=== PATIENT | male | born 1950 | race African-American/Black ===

== ENCOUNTER 2024-06-20 17:23 | Inpatient (IN) | payer OTHER ==
[~2024-06-20] VITALS: Ht 195.6 cm; Wt 99.0 kg
[2024-06-20 19:32] LABS: CLARITY URINE CLOUDY (CLEAR); COLOR URINE DARK YELLOW (YELLOW); GLUCOSE URINE NEGATIVE (NEGATIVE); KETONES URINE TRACE (NEGATIVE); LEUKOCYTE ESTERASE URINE TRACE (NEGATIVE); NITRITE URINE NEGATIVE (NEGATIVE); OCCULT BLOOD URINE TRACE (NEGATIVE); PH URINE 5.5 (4.5-8.0); PROTEIN URINE 1+ (NEGATIVE); SPECIFIC GRAVITY URINE 1.024 (1.005-1.030)
[2024-06-20 19:44] LABS: WBC URINE 0-2 /hpf (0-2)
[2024-06-20 19:45] LABS: BACTERIA URINE TR; RBC URINE 0-2 /hpf (0-2); SQUAMOUS EPITHELIAL CELL URINE 1+ /lpf (RARE/1+)
[2024-06-20 19:46] LABS: HYALINE CASTS URINE 0-5 /lpf
[2024-06-20 20:37] LABS: DIFFERENTIAL COMMENT 1; HEMATOCRIT. 46.9 % (42.0-52.0); HEMOGLOBIN. 16.2 g/dL (14.0-18.0); MEAN CORPUSCULAR HEMOGLOBIN 34.3 pg (28.0-32.0); MEAN CORPUSCULAR HGB CONC 34.5 g/dL (31.0-37.0); MEAN CORPUSCULAR VOLUME 99.7 fL (80.0-94.0); MEAN PLATELET VOLUME 8.5 fl (7.4-10.4); PLATELET 154 x1000/uL (130-400); RED BLOOD CELL COUNT 4.71 mill/uL (4.7-6.1); RED CELL DISTRIBUTION WIDTH 14.6 % (11.6-14.6); WHITE BLOOD COUNT 9.6 x1000/uL (4.5-11.0)
[2024-06-20 20:44] LABS: CHLORIDE 103 mEq/L (98-107); POTASSIUM 3.8 mEq/L (3.5-5.1); SODIUM 135 mEq/L (136-145)
[2024-06-20 20:45] LABS: CALCIUM 9.4 mg/dL (8.7-10.4); CARBON DIOXIDE 24 mEq/L (21-32)
[2024-06-20 20:50] LABS: CREATININE 1.1 mg/dL (0.6-1.3); GLUCOSE 118 mg/dL (70-105); UREA NITROGEN BLOOD 11 mg/dL (9-23)
[2024-06-20 20:52] LABS: ALANINE AMINOTRANSFERASE 19 IU/L (10-49); ASPARTATE AMINOTRANSFERASE 32 IU/L (<34)
[2024-06-20 20:53] LABS: BILIRUBIN TOTAL 2.5 mg/dL (0.1-1.0); PROTEIN TOTAL 6.9 g/dL (6.0-8.3)
[2024-06-20 20:58] LABS: PLATELET ESTIMATE NORMAL
[2024-06-20] MEDS: KETOROLAC 30MG/ML VIAL IM ONE (21:12)
[2024-06-20] MEDS: ACETAMINOPHEN 325MG TABLET PO ONE (21:12)
[2024-06-20] MEDS: LIDOCAINE 5% PATCH TOP SCH (21:12)
[2024-06-21 07:23] VITALS: BP 142/112; RESP 16; TEMP 37.00296; O2SAT 99
[2024-06-21] MEDS ORDERED: ONDANSETRON HCL 4MG/2ML INJ IV PRN (11:00)
[2024-06-21] MEDS ORDERED: HYDRALAZINE 20MG/ML VIAL IV PRN ×2 (11:00→12:15)
[2024-06-21] MEDS ORDERED: DEXTROSE 50% WATER 50ML SYRINGE IV PRN (11:00)
[2024-06-21] MEDS ORDERED: IPRATROPIUM/ALBUTEROL 0.5-3(2.5)MG/3ML NEB HHN PRN (11:00)
[2024-06-21] MEDS: IOHEXOL-300 100 ML BOTTLE ONE (12:06)
[2024-06-21] MEDS ORDERED: HYDROCODONE/ACETAMINOPHEN 5/325MG TABLET PO PRN (12:15)
[2024-06-21] MEDS ORDERED: KETOROLAC 15MG/ML VIAL IV PRN (12:15)
[2024-06-21 13:38] LABS: HEMATOCRIT. 48.4 % (42.0-52.0); HEMOGLOBIN. 15.5 g/dL (14.0-18.0); MEAN CORPUSCULAR HEMOGLOBIN 32.8 pg (28.0-32.0); MEAN CORPUSCULAR VOLUME 102.6 fL (80.0-94.0); MEAN PLATELET VOLUME 8.7 fl (7.4-10.4); PLATELET 133 x1000/uL (130-400); RED BLOOD CELL COUNT 4.72 mill/uL (4.7-6.1); WHITE BLOOD COUNT 9.1 x1000/uL (4.5-11.0)
[2024-06-21 13:41] LABS: DIFFERENTIAL COMMENT 1
[2024-06-21 17:56] VITALS: BP 144/74; PULSE 67; RESP 18; TEMP 36.5848
[2024-06-21 20:00] VITALS: BP 165/167; PULSE 43; RESP 19; TEMP 36.44736; O2SAT 95
[2024-06-21] MEDS: BLOOD SUGAR DIAGNOSTIC STRIP TEST SCH (20:08)
[2024-06-21] MEDS: INSULIN LISPRO 100 UNITS/ML SUBCUT SCH (21:00)
[2024-06-21] MEDS: ATORVASTATIN CALCIUM 40MG TABLET PO SCH (21:23)
[2024-06-21 22:06] LABS: PLATELET ESTIMATE NORMAL
[2024-06-21] MEDS: SODIUM CHLORIDE 0.45% 1,000 ML IV SCH (23:33)
[2024-06-21] MEDS: HYDRALAZINE 10 MG in SODIUM CHLORIDE 0.9% 49.5 ML IV PRN (23:57)
[2024-06-22] VITALS: BP 121/83; PULSE 60; RESP 18; TEMP 36.05844; O2SAT 95
[2024-06-22 04:00] VITALS: BP 131/89; PULSE 66; RESP 18; TEMP 35.66952; O2SAT 100
[2024-06-22] MEDS: SODIUM CHLORIDE 0.9% 500 ML IV ONE (05:17)
[2024-06-22] MEDS: PANTOPRAZOLE 40MG DR TABLET PO SCH (07:20)
[2024-06-22 08:00] VITALS: BP 113/95; PULSE 75; RESP 20; TEMP 36.16956; O2SAT 97
[2024-06-22 12:00] VITALS: BP 118/73; PULSE 75; RESP 20; TEMP 36.00288; O2SAT 99
[2024-06-22] MEDS: DEXAMETHASONE 4MG/ML 1ML VIAL IV SCH (12:21)
[2024-06-22 16:00] VITALS: BP 131/85; PULSE 57; RESP 20; TEMP 36.16956; O2SAT 97
[2024-06-22 16:46] LABS: HEMATOCRIT. 48.5 % (42.0-52.0); HEMOGLOBIN. 16.3 g/dL (14.0-18.0); MEAN CORPUSCULAR HEMOGLOBIN 33.2 pg (28.0-32.0); MEAN CORPUSCULAR HGB CONC 33.6 g/dL (31.0-37.0); MEAN CORPUSCULAR VOLUME 98.8 fL (80.0-94.0); MEAN PLATELET VOLUME 9.3 fl (7.4-10.4); PLATELET 152 x1000/uL (130-400); RED BLOOD CELL COUNT 4.91 mill/uL (4.7-6.1); RED CELL DISTRIBUTION WIDTH 14.2 % (11.6-14.6); WHITE BLOOD COUNT 6.7 x1000/uL (4.5-11.0)
[2024-06-22 16:47] LABS: DIFFERENTIAL COMMENT 1
[2024-06-22 16:52] LABS: CALCIUM 9.4 mg/dL (8.7-10.4); CARBON DIOXIDE 25 mEq/L (21-32); CHLORIDE 101 mEq/L (98-107); POTASSIUM 3.9 mEq/L (3.5-5.1); SODIUM 134 mEq/L (136-145)
[2024-06-22 16:57] LABS: GLUCOSE 105 mg/dL (70-105)
[2024-06-22 16:58] LABS: LDL CHOLESTEROL 56 mg/dL (5-100); TRIGLYCERIDE 97 mg/dL (0-150); UREA NITROGEN BLOOD 20 mg/dL (9-23)
[2024-06-22 16:59] LABS: ALANINE AMINOTRANSFERASE 27 IU/L (10-49); ASPARTATE AMINOTRANSFERASE 46 IU/L (<34); BILIRUBIN DIRECT 0.8 mg/dL (<=3.0); CHOLESTEROL 140 mg/dL (<200); CREATINE KINASE 307 IU/L (46-171); HDL CHOLESTEROL 63 mg/dL (>55); LACTIC ACID 2.3 mmol/L (0.4-2.0)
[2024-06-22 17:00] LABS: BILIRUBIN TOTAL 2.5 mg/dL (0.1-1.0); PROTEIN TOTAL 6.8 g/dL (6.0-8.3)
[2024-06-22 17:02] LABS: T4 FREE 0.92 ng/dL (0.89-1.76); THYROID STIMULATING HORMONE 1.22 uIU/mL (0.55-4.78)
[2024-06-22 17:03] LABS: TROPONIN I HIGH SENSITIVITY 21 ng/L (3.0-53)
[2024-06-22 17:04] LABS: PHOSPHORUS 2.7 mg/dL (2.5-4.9)
[2024-06-22 17:17] LABS: ERYTHROCYTE SEDIMENTATION RATE 10 mm/hr (0-20)
[2024-06-22 19:54] LABS: PLATELET ESTIMATE NORMAL
[2024-06-22 19:55] LABS: ANISOCYTOSIS 1+
[2024-06-22 20:00] VITALS: BP 146/117; PULSE 63; RESP 18; TEMP 36.05844; O2SAT 96
[2024-06-22] MEDS: DEXT 5%/LACTATED RINGERS 1,000 ML IV SCH (22:10)
[2024-06-23] VITALS (50 sets, daily range): BP systolic 113–167; BP diastolic 89–132; PULSE 63–103; RESP 11–32; TEMP 36.05844–36.83628; O2SAT 96–100
[2024-06-23] MEDS ORDERED: LIDOCAINE HCL/EPINEPHRINE 1%-EPI 1:100,000 20ML VIAL ONE (05:13)
[2024-06-23] MEDS ORDERED: GENTAMICIN SULF 40MG/ML 2ML VIAL ONE (05:13)
[2024-06-23] MEDS ORDERED: THROMBIN (BOVINE) 5000 UNITS/VIAL TOP ONE (05:13)
[2024-06-23 06:32] LABS: CARBON DIOXIDE 25 mEq/L (21-32); CHLORIDE 102 mEq/L (98-107); POTASSIUM 4.5 mEq/L (3.5-5.1); SODIUM 136 mEq/L (136-145)
[2024-06-23 06:33] LABS: CALCIUM 9.4 mg/dL (8.7-10.4)
[2024-06-23 06:38] LABS: GLUCOSE 117 mg/dL (70-105); UREA NITROGEN BLOOD 26 mg/dL (9-23)
[2024-06-23 06:39] LABS: ALANINE AMINOTRANSFERASE 30 IU/L (10-49); ASPARTATE AMINOTRANSFERASE 43 IU/L (<34)
[2024-06-23 06:40] LABS: ALBUMIN 4.1 g/dL (3.2-4.8); BILIRUBIN DIRECT 0.8 mg/dL (<=3.0); BILIRUBIN TOTAL 2.5 mg/dL (0.1-1.0); PHOSPHORUS 3.1 mg/dL (2.5-4.9); PROTEIN TOTAL 6.6 g/dL (6.0-8.3)
[2024-06-23] MEDS ORDERED: LIDOCAINE HCL 2% 5ML SYRINGE IV ONE (08:00)
[2024-06-23] MEDS ORDERED: ROCURONIUM BROMIDE 10MG/ML VIAL 5ML IV ONE (08:00)
[2024-06-23] MEDS ORDERED: DEXAMETHASONE 4MG/ML 1ML VIAL ONE (08:00)
[2024-06-23] MEDS ORDERED: SUCCINYLCHOLINE CHLORIDE 200MG/10ML IV ONE (08:00)
[2024-06-23] MEDS ORDERED: PHENYLEPHRINE HCL 10MG/ML 1ML IV ONE (08:01)
[2024-06-23] MEDS ORDERED: PROPOFOL 200MG/20ML VIAL IV ONE (08:01)
[2024-06-23] MEDS: AMIODARONE 200MG TABLET PO SCH (09:00)
[2024-06-23] MEDS: DILTIAZEM HCL 125 MG in DEXT 5% WATER 100 ML IV PRN (09:55)
[2024-06-23 15:28] LABS: DIFFERENTIAL COMMENT 1; HEMATOCRIT. 44.4 % (42.0-52.0); HEMOGLOBIN. 15.1 g/dL (14.0-18.0); MEAN CORPUSCULAR HEMOGLOBIN 33.5 pg (28.0-32.0); MEAN CORPUSCULAR VOLUME 98.7 fL (80.0-94.0); MEAN PLATELET VOLUME 8.9 fl (7.4-10.4); PLATELET 187 x1000/uL (130-400); RED CELL DISTRIBUTION WIDTH 14.1 % (11.6-14.6); WHITE BLOOD COUNT 5.8 x1000/uL (4.5-11.0)
[2024-06-23 15:37] LABS: PROTHROMBIN TIME 11.3 sec (9.6-11.0)
[2024-06-23 19:10] LABS: NUCLEATED RED BLOOD CELLS 1 /100 WBC; PLATELET ESTIMATE NORMAL
[2024-06-23 19:11] LABS: ANISOCYTOSIS 1+
[2024-06-24] VITALS (62 sets, daily range): BP systolic 127–187; BP diastolic 65–129; PULSE 57–102; RESP 10–29; TEMP 36.83628–36.9474; O2SAT 93–100
[2024-06-24 06:00] LABS: CHLORIDE 105 mEq/L (98-107); POTASSIUM 4.4 mEq/L (3.5-5.1); SODIUM 137 mEq/L (136-145)
[2024-06-24 06:01] LABS: CALCIUM 8.9 mg/dL (8.7-10.4); CARBON DIOXIDE 26 mEq/L (21-32)
[2024-06-24 06:06] LABS: GLUCOSE 130 mg/dL (70-105); UREA NITROGEN BLOOD 21 mg/dL (9-23)
[2024-06-24 06:08] LABS: PHOSPHORUS 3.2 mg/dL (2.5-4.9)
[2024-06-24] MEDS: HYDRALAZINE 20MG/ML VIAL IV NR (06:22)
[2024-06-24] MEDS: DEXAMETHASONE 4MG/ML 1ML VIAL ONE (13:32)
[2024-06-24] MEDS: CARVEDILOL 3.125 MG TABLET PO SCH (13:39)
[2024-06-24] MEDS: AMIODARONE HCL 900 MG in DEXT 5% WATER 482 ML IV SCH (13:46)
[2024-06-24] MEDS: GADOTERATE MEGLUMINE 5 MMOL/10 ML VIAL IV ONE (15:53)
[2024-06-24] MEDS: LOSARTAN 50 MG TABLET PO SCH (20:24)
[2024-06-25] VITALS (55 sets, daily range): BP systolic 99–185; BP diastolic 68–169; PULSE 44–83; RESP 10–27; TEMP 36.50292–36.83628; O2SAT 96–100
[2024-06-25 05:52] LABS: CHLORIDE 104 mEq/L (98-107); POTASSIUM 3.9 mEq/L (3.5-5.1); SODIUM 138 mEq/L (136-145)
[2024-06-25 05:53] LABS: CALCIUM 8.8 mg/dL (8.7-10.4); CARBON DIOXIDE 28 mEq/L (21-32)
[2024-06-25 05:58] LABS: GLUCOSE 126 mg/dL (70-105); UREA NITROGEN BLOOD 25 mg/dL (9-23)
[2024-06-25 06:00] LABS: CREATINE KINASE 52 IU/L (46-171); PHOSPHORUS 3.5 mg/dL (2.5-4.9)
[2024-06-25 06:06] LABS: HEMATOCRIT. 44.7 % (42.0-52.0); HEMOGLOBIN. 14.6 g/dL (14.0-18.0); MEAN CORPUSCULAR HEMOGLOBIN 32.8 pg (28.0-32.0); MEAN CORPUSCULAR HGB CONC 32.8 g/dL (31.0-37.0); MEAN CORPUSCULAR VOLUME 100.1 fL (80.0-94.0); MEAN PLATELET VOLUME 9.1 fl (7.4-10.4); PLATELET 192 x1000/uL (130-400); RED BLOOD CELL COUNT 4.46 mill/uL (4.7-6.1); RED CELL DISTRIBUTION WIDTH 14.4 % (11.6-14.6); WHITE BLOOD COUNT 8.7 x1000/uL (4.5-11.0)
[2024-06-25 06:37] LABS: ADD RBC MORPHOLOGY YES; DIFFERENTIAL COMMENT 1
[2024-06-25] MEDS ORDERED: LIDOCAINE HCL 1% 10 MG/ML 10ML VIAL ONE (07:43)
[2024-06-25] MEDS: LEVOTHYROXINE SODIUM 88MCG TABLET PO SCH (09:42)
[2024-06-25 14:42] LABS: PLATELET ESTIMATE NORMAL
[2024-06-26] VITALS (49 sets, daily range): BP systolic 60–170; BP diastolic 20–125; PULSE 45–113; RESP 11–23; TEMP 36.44736–37.05852; O2SAT 95–100
[2024-06-26 05:25] LABS: CHLORIDE 104 mEq/L (98-107); SODIUM 137 mEq/L (136-145)
[2024-06-26 05:28] LABS: CALCIUM 8.7 mg/dL (8.7-10.4); CARBON DIOXIDE 27 mEq/L (21-32); HEMATOCRIT. 48.1 % (42.0-52.0); MEAN CORPUSCULAR HEMOGLOBIN 32.9 pg (28.0-32.0); MEAN CORPUSCULAR HGB CONC 33.3 g/dL (31.0-37.0); MEAN CORPUSCULAR VOLUME 98.9 fL (80.0-94.0); MEAN PLATELET VOLUME 9.1 fl (7.4-10.4); PLATELET 193 x1000/uL (130-400); RED BLOOD CELL COUNT 4.87 mill/uL (4.7-6.1); RED CELL DISTRIBUTION WIDTH 14.3 % (11.6-14.6); WHITE BLOOD COUNT 8.1 x1000/uL (4.5-11.0)
[2024-06-26 05:31] LABS: UREA NITROGEN BLOOD 23 mg/dL (9-23)
[2024-06-26 05:33] LABS: GLUCOSE 90 mg/dL (70-105)
[2024-06-26 05:35] LABS: ALANINE AMINOTRANSFERASE 73 IU/L (10-49); ALBUMIN 3.3 g/dL (3.2-4.8); ASPARTATE AMINOTRANSFERASE 52 IU/L (<34); BILIRUBIN DIRECT 0.5 mg/dL (<=3.0); BILIRUBIN TOTAL 1.2 mg/dL (0.1-1.0); PHOSPHORUS 2.8 mg/dL (2.5-4.9); PROTEIN TOTAL 5.5 g/dL (6.0-8.3)
[2024-06-26 05:42] LABS: DIFFERENTIAL COMMENT 1
[2024-06-26 07:48] LABS: PLATELET ESTIMATE NORMAL
[2024-06-26] MEDS: HYDRALAZINE 20MG/ML VIAL IV PRN (08:50)
[2024-06-26] MEDS ORDERED: AMIODARONE 200MG TABLET PO SCH (09:00)
[2024-06-26] MEDS ORDERED: NALOXONE HCL 0.4MG/ML VIAL IV PRN (09:30)
[2024-06-26] MEDS ORDERED: GENTAMICIN SULF 40MG/ML 2ML VIAL ONE ×2 (09:33→10:51)
[2024-06-26] MEDS ORDERED: LIDOCAINE HCL/EPINEPHRINE 1%-EPI 1:100,000 20ML VIAL ONE (09:33)
[2024-06-26] MEDS ORDERED: BACITRACIN 14GM TUBE TOP ONE (09:33)
[2024-06-26] MEDS ORDERED: THROMBIN (BOVINE) 5000 UNITS/VIAL TOP ONE (09:33)
[2024-06-26] MEDS ORDERED: ROCURONIUM BROMIDE 10MG/ML VIAL 5ML IV ONE ×2 (10:19→14:04)
[2024-06-26] MEDS ORDERED: SUCCINYLCHOLINE CHLORIDE 200MG/10ML IV ONE (10:19)
[2024-06-26] MEDS ORDERED: LIDOCAINE HCL 2% 5ML SYRINGE IV ONE (10:19)
[2024-06-26] MEDS ORDERED: PROPOFOL 200MG/20ML VIAL IV ONE (10:19)
[2024-06-26] MEDS ORDERED: DEXAMETHASONE 4MG/ML 1ML VIAL ONE (10:19)
[2024-06-26] MEDS ORDERED: PHENYLEPHRINE HCL 10MG/ML 1ML IV ONE (10:20)
[2024-06-26 12:28] LABS: ERYTHROCYTE SEDIMENTATION RATE 3 mm/hr (0-20)
[2024-06-26] MEDS ORDERED: GLYCOPYRROLATE 0.2 MG/ML 2ML VIAL ONE (13:57)
[2024-06-26] MEDS ORDERED: FENTANYL CITRATE/PF 50MCG/ML 2ML VIAL ONE (14:12)
[2024-06-26] MEDS ORDERED: CEFAZOLIN SODIUM 1000MG/VIAL ONE (14:21)
[2024-06-26] MEDS ORDERED: ATROPINE SULFATE 1MG/10ML SYR ONE (15:39)
[2024-06-26] MEDS ORDERED: NITROGLYCERIN 50MG PREMIX 250 ML IV ONE (15:39)
[2024-06-26] MEDS ORDERED: SUGAMMADEX SODIUM 200MG/2ML VIAL IV ONE (16:17)
[2024-06-26] MEDS ORDERED: PROPOFOL 10MG/ML 100ML 100 ML IV SCH (18:15)
[2024-06-26] MEDS: DEXAMETHASONE 4MG/ML 1ML VIAL IV SCH (18:41)
[2024-06-26] MEDS: MORPHINE SULFATE 4 MG/ML INJ (FOR IV/IM USE) IV PRN (18:41)
[2024-06-26] MEDS: NICARDIPINE 50 MG in SODIUM CHLORIDE 0.9% 230 ML IV PRN (19:01)
[2024-06-26] MEDS: FENTANYL 2500MCG/250ML PMX 250 ML IV PRN (19:01)
[2024-06-26] MEDS: MIDAZOLAM 100MG/100ML PMX 100 ML IV PRN (19:02)
[2024-06-26] MEDS ORDERED: PHENYLEPHRINE 100 MG in DEXT 5% WATER 240 ML IV PRN (20:15)
[2024-06-26] MEDS: SODIUM CHLORIDE 0.9% 1,000 ML IV ONE (20:17)
[2024-06-26] MEDS: CEFAZOLIN 1000MG PREMIX 50ML IV SCH (21:36)
[2024-06-26] MEDS: CEFTRIAXONE 2GM/50ML 50ML IV NR (21:49)
[2024-06-26] MEDS: DEXT 5%/LACTATED RINGERS 1,000 ML IV SCH (21:54)
[2024-06-26] MEDS ORDERED: CEFAZOLIN SODIUM 1000MG/VIAL IV SCH (22:00)
[2024-06-26] MEDS: VANCOMYCIN 1,750 MG in DEXT 5% WATER 500 ML IV NR (22:08)
[2024-06-27] VITALS (102 sets, daily range): BP systolic 70–161; BP diastolic 50–133; PULSE 40–93; RESP 6–25; TEMP 36.61404–37.05852; O2SAT 94–100
[2024-06-27 06:26] LABS: CARBON DIOXIDE 20 mEq/L (21-32); CHLORIDE 114 mEq/L (98-107); POTASSIUM 2.9 mEq/L (3.5-5.1); SODIUM 140 mEq/L (136-145)
[2024-06-27 06:32] LABS: GLUCOSE 152 mg/dL (70-105); UREA NITROGEN BLOOD 15 mg/dL (9-23)
[2024-06-27 06:34] LABS: PHOSPHORUS 1.9 mg/dL (2.5-4.9); THYROID STIMULATING HORMONE 0.96 uIU/mL (0.55-4.78)
[2024-06-27 07:43] LABS: CREATININE 0.5 mg/dL (0.6-1.3)
[2024-06-27 07:45] LABS: CALCIUM 5.7 mg/dL (8.7-10.4)
[2024-06-27] MEDS: VANCOMYCIN 1GM/200ML PMX (BAXTER) IV SCH (08:45)
[2024-06-27] MEDS: CEFTRIAXONE 2GM/50ML 50 ML IV SCH (08:47)
[2024-06-27] MEDS ORDERED: AMIODARONE 200MG TABLET PO SCH (09:00)
[2024-06-27] MEDS ORDERED: POTASSIUM CHLORIDE 40 MEQ in DEXT 5% WATER 230 ML IV ONE (09:30)
[2024-06-27 10:13] LABS: CALCIUM 7.8 mg/dL (8.7-10.4)
[2024-06-27 10:14] LABS: HEMATOCRIT. 34.6 % (42.0-52.0); HEMOGLOBIN. 11.4 g/dL (14.0-18.0); MEAN CORPUSCULAR HEMOGLOBIN 32.3 pg (28.0-32.0); MEAN CORPUSCULAR HGB CONC 32.8 g/dL (31.0-37.0); MEAN CORPUSCULAR VOLUME 98.4 fL (80.0-94.0); MEAN PLATELET VOLUME 9.7 fl (7.4-10.4); PLATELET 149 x1000/uL (130-400); RED BLOOD CELL COUNT 3.52 mill/uL (4.7-6.1); RED CELL DISTRIBUTION WIDTH 13.8 % (11.6-14.6); WHITE BLOOD COUNT 12.3 x1000/uL (4.5-11.0)
[2024-06-27 10:18] LABS: CREATININE 0.7 mg/dL (0.6-1.3)
[2024-06-27 10:19] LABS: DIFFERENTIAL COMMENT 1
[2024-06-27 10:20] LABS: ALBUMIN 2.6 g/dL (3.2-4.8)
[2024-06-27] MEDS: KCL 20MEQ/100ML X 2 FOR TOTAL KCL 40MEQ/200ML IV SCH (11:06)
[2024-06-27 12:10] LABS: BG BASE EXCESS -2.5 mmol/L (-2.0-3.0); BG CARBOXYHEMOGLOBIN 0.3 % (0.5-1.5); BG DEOXYHEMOGLOBIN 1.2 % (0.0-5.0); BG FRACTION INSPIRED OXYGEN 40; BG HCO3 ACT 20.9 mmol/L (21.0-28.0); BG METHEMOGLOBIN 0.3 % (0.5-1.5); BG OXYGEN SATURATION 98.8 % (94.0-98.0); BG OXYHEMOGLOBIN 98.2 % (94.0-98.0); BG PCO2 32.3 mmHg (35.0-48.0); BG PH 7.429 (7.350-7.450); BG PO2 130.5 mmHg (83.0-108.0); BG SAMPLE SITE RIGHT RADIAL; BG TOTAL HEMOGLOBIN 13.2 g/dL (13.5-17.5); BG TOTAL RESPIRATORY RATE 15 b/min; BG VENT MODE VENT - SIMV
[2024-06-27 13:11] LABS: PLATELET ESTIMATE NORMAL
[2024-06-27] MEDS: POTASSIUM PHOSPHATE 15 MMOL in DEXT 5% WATER 245 ML IV NR (13:11)
[2024-06-27 14:55] LABS: BG BASE EXCESS -3.5 mmol/L (-2.0-3.0); BG CARBOXYHEMOGLOBIN 0.3 % (0.5-1.5); BG DEOXYHEMOGLOBIN 1.6 % (0.0-5.0); BG FRACTION INSPIRED OXYGEN 40; BG HCO3 ACT 19.6 mmol/L (21.0-28.0); BG METHEMOGLOBIN 0.3 % (0.5-1.5); BG OXYGEN SATURATION 98.4 % (94.0-98.0); BG OXYHEMOGLOBIN 97.8 % (94.0-98.0); BG PCO2 30.2 mmHg (35.0-48.0); BG PH 7.431 (7.350-7.450); BG SAMPLE SITE RIGHT RADIAL; BG TOTAL HEMOGLOBIN 13.2 g/dL (13.5-17.5); BG VENT MODE VENT - CPAP
[2024-06-27] MEDS: MAGNESIUM 4 G PREMIX 100 ML IV NR (17:30)
[2024-06-27] MEDS: SODIUM CHLORIDE 0.9% 1,000 ML IV ONE (17:30)
[2024-06-27 19:33] LABS: CHLORIDE 104 mEq/L (98-107); SODIUM 133 mEq/L (136-145)
[2024-06-27 19:34] LABS: CALCIUM 8.1 mg/dL (8.7-10.4); CARBON DIOXIDE 23 mEq/L (21-32)
[2024-06-27 19:36] LABS: HEMATOCRIT. 36.4 % (42.0-52.0); HEMOGLOBIN. 12.1 g/dL (14.0-18.0); MEAN CORPUSCULAR HEMOGLOBIN 32.9 pg (28.0-32.0); MEAN CORPUSCULAR HGB CONC 33.1 g/dL (31.0-37.0); MEAN CORPUSCULAR VOLUME 99.5 fL (80.0-94.0); MEAN PLATELET VOLUME 9.9 fl (7.4-10.4); PLATELET 166 x1000/uL (130-400); RED BLOOD CELL COUNT 3.66 mill/uL (4.7-6.1); RED CELL DISTRIBUTION WIDTH 14.4 % (11.6-14.6)
[2024-06-27 19:37] LABS: LACTIC ACID 2.8 mmol/L (0.4-2.0)
[2024-06-27 19:39] LABS: CREATININE 1.1 mg/dL (0.6-1.3); GLUCOSE 105 mg/dL (70-105)
[2024-06-27 19:40] LABS: UREA NITROGEN BLOOD 17 mg/dL (9-23)
[2024-06-27 19:41] LABS: ALANINE AMINOTRANSFERASE 39 IU/L (10-49); ASPARTATE AMINOTRANSFERASE 29 IU/L (<34); BILIRUBIN DIRECT 0.3 mg/dL (<=3.0)
[2024-06-27 19:42] LABS: BILIRUBIN TOTAL 0.7 mg/dL (0.1-1.0); PHOSPHORUS 3.9 mg/dL (2.5-4.9); PROTEIN TOTAL 5.1 g/dL (6.0-8.3)
[2024-06-27 19:47] LABS: DIFFERENTIAL COMMENT 1
[2024-06-27 20:30] LABS: GIANT PLATELETS 1+; PLATELET ESTIMATE NORMAL
[2024-06-28] VITALS (44 sets, daily range): BP systolic 82–149; BP diastolic 55–132; PULSE 67–108; RESP 13–21; TEMP 36.16956–36.9474; O2SAT 96–100
[2024-06-28 05:55] LABS: HEMATOCRIT. 33.8 % (42.0-52.0); HEMOGLOBIN. 11.4 g/dL (14.0-18.0); MEAN CORPUSCULAR HEMOGLOBIN 33.4 pg (28.0-32.0); MEAN CORPUSCULAR HGB CONC 33.8 g/dL (31.0-37.0); MEAN CORPUSCULAR VOLUME 98.8 fL (80.0-94.0); MEAN PLATELET VOLUME 9.2 fl (7.4-10.4); PLATELET 181 x1000/uL (130-400); RED BLOOD CELL COUNT 3.42 mill/uL (4.7-6.1); RED CELL DISTRIBUTION WIDTH 14.3 % (11.6-14.6); WHITE BLOOD COUNT 15.8 x1000/uL (4.5-11.0)
[2024-06-28 06:04] LABS: POTASSIUM 4.8 mEq/L (3.5-5.1)
[2024-06-28 06:05] LABS: CALCIUM 8.2 mg/dL (8.7-10.4)
[2024-06-28 06:10] LABS: CREATININE 1.4 mg/dL (0.6-1.3)
[2024-06-28 06:35] LABS: DIFFERENTIAL COMMENT 1
[2024-06-28] MEDS ORDERED: NALOXONE HCL 0.4MG/ML VIAL IV PRN (06:45)
[2024-06-28] MEDS: ACETAMINOPHEN 325MG TABLET PO PRN (16:15)
[2024-06-28 18:16] LABS: PLATELET ESTIMATE NORMAL
[2024-06-29] VITALS: BP 128/81; PULSE 102; RESP 18; TEMP 36.28068; O2SAT 97
[2024-06-29 04:00] VITALS: BP 120/67; PULSE 69; RESP 18; TEMP 36.72516; O2SAT 97
[2024-06-29 08:00] VITALS: BP 115/79; PULSE 76; RESP 18; TEMP 36.50292; O2SAT 95
[2024-06-29 09:08] LABS: CHLORIDE 104 mEq/L (98-107); POTASSIUM 4.8 mEq/L (3.5-5.1); SODIUM 132 mEq/L (136-145)
[2024-06-29 09:09] LABS: CALCIUM 8.2 mg/dL (8.7-10.4); CARBON DIOXIDE 24 mEq/L (21-32)
[2024-06-29 09:12] LABS: HEMATOCRIT. 29.7 % (42.0-52.0); HEMOGLOBIN. 10.1 g/dL (14.0-18.0); MEAN CORPUSCULAR HEMOGLOBIN 33.7 pg (28.0-32.0); MEAN CORPUSCULAR HGB CONC 34.2 g/dL (31.0-37.0); MEAN CORPUSCULAR VOLUME 98.8 fL (80.0-94.0); RED CELL DISTRIBUTION WIDTH 14.2 % (11.6-14.6); WHITE BLOOD COUNT 9.8 x1000/uL (4.5-11.0)
[2024-06-29 09:14] LABS: CREATININE 1.2 mg/dL (0.6-1.3); GLUCOSE 94 mg/dL (70-105); UREA NITROGEN BLOOD 30 mg/dL (9-23)
[2024-06-29 09:15] LABS: DIFFERENTIAL COMMENT 1
[2024-06-29] MEDS: CEFTRIAXONE 2GM/50ML 50ML IV SCH (09:42)
[2024-06-29 10:34] LABS: PLATELET ESTIMATE NORMAL
[2024-06-29 12:00] VITALS: BP 101/64; PULSE 67; RESP 19; TEMP 36.28068; O2SAT 99
[2024-06-29] MEDS: DEXT 5%/0.9% NACL 1,000 ML IV ONE (15:47)
[2024-06-29 16:00] VITALS: BP 120/71; PULSE 80; RESP 18; TEMP 36.28068; O2SAT 96
[2024-06-29 20:00] VITALS: BP_SYST 130; BP_SYST 136; BP_DIAS 81; BP_DIAS 89; PULSE 71; PULSE 75; RESP 18; TEMP 36.114; TEMP 36.28068; O2SAT 94; O2SAT 98
[2024-06-29] MEDS: VANCOMYCIN 1G PREMIX 200 ML IV SCH (22:01)
[2024-06-30] VITALS: BP 120/76; PULSE 73; RESP 18; TEMP 36.114; O2SAT 100
[2024-06-30 04:00] VITALS: BP 142/77; PULSE 72; RESP 18; TEMP 36.28068; O2SAT 98
[2024-06-30 08:00] VITALS: BP 132/94; PULSE 86; RESP 18; TEMP 36.72516; O2SAT 96
[2024-06-30 09:42] LABS: HEMATOCRIT. 33.7 % (42.0-52.0); HEMOGLOBIN. 10.9 g/dL (14.0-18.0); MEAN CORPUSCULAR HEMOGLOBIN 32.3 pg (28.0-32.0); MEAN CORPUSCULAR HGB CONC 32.5 g/dL (31.0-37.0); MEAN CORPUSCULAR VOLUME 99.3 fL (80.0-94.0); MEAN PLATELET VOLUME 8.8 fl (7.4-10.4); PLATELET 232 x1000/uL (130-400); RED BLOOD CELL COUNT 3.39 mill/uL (4.7-6.1); RED CELL DISTRIBUTION WIDTH 14.3 % (11.6-14.6); WHITE BLOOD COUNT 7.1 x1000/uL (4.5-11.0)
[2024-06-30 09:47] LABS: DIFFERENTIAL COMMENT 1
[2024-06-30 10:05] LABS: CHLORIDE 104 mEq/L (98-107); POTASSIUM 4.2 mEq/L (3.5-5.1); SODIUM 134 mEq/L (136-145)
[2024-06-30 10:06] LABS: CALCIUM 8.6 mg/dL (8.7-10.4); CARBON DIOXIDE 24 mEq/L (21-32)
[2024-06-30 10:11] LABS: CREATININE 1.1 mg/dL (0.6-1.3); GLUCOSE 122 mg/dL (70-105); UREA NITROGEN BLOOD 26 mg/dL (9-23)
[2024-06-30 10:13] LABS: PHOSPHORUS 2.4 mg/dL (2.5-4.9)
[2024-06-30 12:00] VITALS: BP 109/82; PULSE 86; RESP 19; TEMP 36.55848; O2SAT 98
[2024-06-30 13:06] LABS: QFT MITOGEN VALUE 0.21 IU/mL (.); QFT TB GOLD PLUS Indeterminate (Negative)
[2024-06-30 16:00] VITALS: BP 138/77; PULSE 87; RESP 18; TEMP 36.22512
[2024-06-30] MEDS: POTASSIUM-SODIUM PHOSPHATE POWDER PACKET PO SCH (17:20)
[2024-06-30 17:23] LABS: PLATELET ESTIMATE NORMAL
[2024-06-30 20:00] VITALS: BP 152/90; PULSE 87; RESP 18; TEMP 36.114; O2SAT 99
[2024-07-01] VITALS: BP 123/87; PULSE 85; RESP 18; TEMP 36.3918; O2SAT 95
[2024-07-01 04:00] VITALS: BP 143/81; PULSE 52; RESP 18; TEMP 36.50292; O2SAT 96
[2024-07-01 08:00] VITALS: BP 146/78; PULSE 89; RESP 18; TEMP 36.114; O2SAT 96
[2024-07-01 10:52] LABS: CHLORIDE 101 mEq/L (98-107); POTASSIUM 4.4 mEq/L (3.5-5.1); SODIUM 133 mEq/L (136-145)
[2024-07-01 10:53] LABS: CALCIUM 8.6 mg/dL (8.7-10.4); CARBON DIOXIDE 25 mEq/L (21-32)
[2024-07-01 10:58] LABS: GLUCOSE 99 mg/dL (70-105); UREA NITROGEN BLOOD 23 mg/dL (9-23)
[2024-07-01 11:10] LABS: PHOSPHORUS 2.4 mg/dL (2.5-4.9)
[2024-07-01 11:18] LABS: HEMATOCRIT. 30.5 % (42.0-52.0); HEMOGLOBIN. 10.2 g/dL (14.0-18.0); MEAN CORPUSCULAR HEMOGLOBIN 33.2 pg (28.0-32.0); MEAN CORPUSCULAR HGB CONC 33.4 g/dL (31.0-37.0); MEAN CORPUSCULAR VOLUME 99.3 fL (80.0-94.0); RED BLOOD CELL COUNT 3.08 mill/uL (4.7-6.1); RED CELL DISTRIBUTION WIDTH 13.5 % (11.6-14.6)
[2024-07-01 11:25] LABS: DIFFERENTIAL COMMENT 1
[2024-07-01 12:00] VITALS: BP 127/94; PULSE 100; RESP 16; TEMP 36.44736; O2SAT 98
[2024-07-01 12:36] LABS: NUCLEATED RED BLOOD CELLS 1 /100 WBC; PLATELET ESTIMATE NORMAL
[2024-07-01 12:37] LABS: PLATELET 233 x1000/uL (130-400)
[2024-07-01] MEDS: ENOXAPARIN 80MG/0.8ML SYR SUBCUT SCH (14:18)
[2024-07-01 16:00] VITALS: BP 122/80; PULSE 54; RESP 18; TEMP 36.114; O2SAT 96
[2024-07-01] MEDS: FOLIC ACID 1MG TABLET PO SCH (18:32)
[2024-07-01] MEDS: THIAMINE HCL 100MG TABLET PO SCH (18:33)
[2024-07-01 20:00] VITALS: BP 127/71; PULSE 52; RESP 18; TEMP 37.2252; O2SAT 97
[2024-07-01] MEDS: SODIUM PHOSPHATE 15 MMOL in DEXT 5% WATER 250 ML IV NR (21:44)
[2024-07-02] VITALS: BP_SYST 117; BP_SYST 145; BP_DIAS 87; BP_DIAS 89; PULSE 57; PULSE 90; RESP 18; RESP 20; TEMP 36.22512; TEMP 36.3918; O2SAT 97
[2024-07-02 04:00] VITALS: BP 130/80; PULSE 75; RESP 18; TEMP 36.33624; O2SAT 97
[2024-07-02 08:00] VITALS: BP 111/78; PULSE 71; RESP 18; TEMP 35.5584; O2SAT 98
[2024-07-02] MEDS: FAMOTIDINE 20MG TABLET PO SCH (10:51)
[2024-07-02 12:00] VITALS: BP 95/64; PULSE 63; RESP 18; TEMP 35.78064; O2SAT 100
[2024-07-02 16:00] VITALS: BP 122/80; PULSE 98; RESP 19; TEMP 36.28068; O2SAT 98
[2024-07-02 16:30] LABS: BASOPHILS % 0.4 % (0.0-2.0); DIFFERENTIAL COMMENT 0; EOSINOPHILS % 0.8 % (0.0-5.0); HEMATOCRIT. 32.3 % (42.0-52.0); HEMOGLOBIN. 10.5 g/dL (14.0-18.0); LYMPHOCYTES % 8.4 % (20.0-50.0); MEAN CORPUSCULAR HEMOGLOBIN 32.9 pg (28.0-32.0); MEAN CORPUSCULAR HGB CONC 32.4 g/dL (31.0-37.0); MEAN CORPUSCULAR VOLUME 101.4 fL (80.0-94.0); MEAN PLATELET VOLUME 8.8 fl (7.4-10.4); MONOCYTES % 13.5 % (2.0-8.0); NEUTROPHILS % 76.9 % (40.0-76.0); PLATELET 288 x1000/uL (130-400); RED BLOOD CELL COUNT 3.19 mill/uL (4.7-6.1); RED CELL DISTRIBUTION WIDTH 14.2 % (11.6-14.6); WHITE BLOOD COUNT 10.5 x1000/uL (4.5-11.0)
[2024-07-02 16:31] LABS: CHLORIDE 102 mEq/L (98-107); POTASSIUM 3.4 mEq/L (3.5-5.1); SODIUM 132 mEq/L (136-145)
[2024-07-02 16:32] LABS: CARBON DIOXIDE 24 mEq/L (21-32)
[2024-07-02 16:33] LABS: CALCIUM 8.5 mg/dL (8.7-10.4)
[2024-07-02 16:37] LABS: GLUCOSE 81 mg/dL (70-105); UREA NITROGEN BLOOD 18 mg/dL (9-23)
[2024-07-02 16:40] LABS: PHOSPHORUS 3.2 mg/dL (2.5-4.9)
[2024-07-02 20:00] VITALS: BP 95/55; PULSE 81; RESP 19; TEMP 36.3918; O2SAT 97
[2024-07-03 04:00] VITALS: BP 118/71; PULSE 104; RESP 20; TEMP 36.6696; O2SAT 97
[2024-07-03 08:00] VITALS: BP 103/60; PULSE 88; RESP 18; TEMP 36.22512; O2SAT 98
[2024-07-03 12:00] VITALS: BP 101/79; PULSE 92; RESP 19; TEMP 35.78064; O2SAT 98
[2024-07-03 14:52] LABS: BASOPHILS % 0.3 % (0.0-2.0); DIFFERENTIAL COMMENT 0; EOSINOPHILS % 1.3 % (0.0-5.0); HEMOGLOBIN. 9.8 g/dL (14.0-18.0); LYMPHOCYTES % 8.1 % (20.0-50.0); MEAN CORPUSCULAR HEMOGLOBIN 33.9 pg (28.0-32.0); MEAN CORPUSCULAR HGB CONC 33.9 g/dL (31.0-37.0); MEAN CORPUSCULAR VOLUME 100.1 fL (80.0-94.0); MEAN PLATELET VOLUME 8.5 fl (7.4-10.4); MONOCYTES % 13.2 % (2.0-8.0); NEUTROPHILS % 77.1 % (40.0-76.0); PLATELET 285 x1000/uL (130-400); RED CELL DISTRIBUTION WIDTH 13.9 % (11.6-14.6); WHITE BLOOD COUNT 8.8 x1000/uL (4.5-11.0)
[2024-07-03 15:10] LABS: CARBON DIOXIDE 26 mEq/L (21-32); CHLORIDE 102 mEq/L (98-107); SODIUM 131 mEq/L (136-145)
[2024-07-03 15:11] LABS: CALCIUM 8.5 mg/dL (8.7-10.4)
[2024-07-03 15:16] LABS: CREATININE 0.9 mg/dL (0.6-1.3); GLUCOSE 98 mg/dL (70-105); UREA NITROGEN BLOOD 15 mg/dL (9-23)
[2024-07-03 15:18] LABS: PHOSPHORUS 2.7 mg/dL (2.5-4.9)
[2024-07-03 16:00] VITALS: BP 121/77; PULSE 37; RESP 18; TEMP 35.89176; O2SAT 98
[2024-07-03] MEDS: SODIUM CHLORIDE 0.9% 1,000 ML IV ONE (16:45)
[2024-07-03 20:00] VITALS: BP 152/100; PULSE 75; RESP 20; TEMP 36.16956; O2SAT 98
[2024-07-04] VITALS: BP 130/85; PULSE 82; RESP 20; TEMP 35.89176; O2SAT 97
[2024-07-04 04:00] VITALS: PULSE 56; RESP 20; TEMP 36.22512; O2SAT 98
[2024-07-04 08:00] VITALS: BP 153/93; PULSE 93; RESP 18; TEMP 36.55848; O2SAT 97
[2024-07-04 12:00] VITALS: BP 119/73; PULSE 71; RESP 19; TEMP 36.44736; O2SAT 96
[2024-07-04 12:13] LABS: BASOPHILS % 0.2 % (0.0-2.0); EOSINOPHILS % 2.1 % (0.0-5.0); HEMATOCRIT. 29.1 % (42.0-52.0); HEMOGLOBIN. 9.6 g/dL (14.0-18.0); LYMPHOCYTES % 7.4 % (20.0-50.0); MEAN CORPUSCULAR HEMOGLOBIN 32.7 pg (28.0-32.0); MEAN CORPUSCULAR HGB CONC 32.8 g/dL (31.0-37.0); MEAN CORPUSCULAR VOLUME 99.6 fL (80.0-94.0); MEAN PLATELET VOLUME 8.3 fl (7.4-10.4); MONOCYTES % 12.6 % (2.0-8.0); NEUTROPHILS % 77.7 % (40.0-76.0); PLATELET 310 x1000/uL (130-400); RED BLOOD CELL COUNT 2.93 mill/uL (4.7-6.1); RED CELL DISTRIBUTION WIDTH 13.9 % (11.6-14.6); WHITE BLOOD COUNT 7.7 x1000/uL (4.5-11.0)
[2024-07-04 12:16] LABS: CHLORIDE 100 mEq/L (98-107); POTASSIUM 3.4 mEq/L (3.5-5.1); SODIUM 132 mEq/L (136-145)
[2024-07-04 12:17] LABS: CALCIUM 8.3 mg/dL (8.7-10.4); CARBON DIOXIDE 27 mEq/L (21-32)
[2024-07-04 12:22] LABS: GLUCOSE 96 mg/dL (70-105); UREA NITROGEN BLOOD 14 mg/dL (9-23)
[2024-07-04 12:24] LABS: PHOSPHORUS 2.5 mg/dL (2.5-4.9)
[2024-07-04 16:00] VITALS: BP 110/57; PULSE 81; RESP 20; TEMP 36.6696; O2SAT 96
[2024-07-04] MEDS: MAGNESIUM 2 G PREMIX 50 ML IV NR (16:18)
[2024-07-04] MEDS: POTASSIUM CHLORIDE 20MEQ TABLET SR PO NR (17:35)
[2024-07-04] MEDS: SODIUM CHLORIDE 0.9% 1,000 ML IV ONE (17:35)
[2024-07-04 20:00] VITALS: BP 150/80; PULSE 94; RESP 18; TEMP 36.61404; O2SAT 95
[2024-07-05] VITALS: BP 129/97; PULSE 66; RESP 18; TEMP 36.44736; O2SAT 96
[2024-07-05] MEDS: ZOLPIDEM TARTRATE 5MG TABLET PO NR (02:03)
[2024-07-05 08:00] VITALS: BP 100/78; PULSE 87; RESP 18; TEMP 36.28068; O2SAT 96
[2024-07-05 12:00] VITALS: BP 118/77; PULSE 89; RESP 16; TEMP 36.61404; O2SAT 98
[2024-07-05 16:00] VITALS: BP 95/45; PULSE 92; RESP 17; TEMP 36.28068; O2SAT 98
[2024-07-05 16:10] LABS: BASOPHILS % 0.4 % (0.0-2.0); DIFFERENTIAL COMMENT 0; EOSINOPHILS % 1.9 % (0.0-5.0); HEMATOCRIT. 28.3 % (42.0-52.0); HEMOGLOBIN. 9.2 g/dL (14.0-18.0); LYMPHOCYTES % 8.5 % (20.0-50.0); MEAN CORPUSCULAR HEMOGLOBIN 32.3 pg (28.0-32.0); MEAN CORPUSCULAR HGB CONC 32.3 g/dL (31.0-37.0); MEAN CORPUSCULAR VOLUME 100.1 fL (80.0-94.0); MEAN PLATELET VOLUME 8.2 fl (7.4-10.4); MONOCYTES % 10.1 % (2.0-8.0); NEUTROPHILS % 79.1 % (40.0-76.0); PLATELET 323 x1000/uL (130-400); RED BLOOD CELL COUNT 2.83 mill/uL (4.7-6.1); WHITE BLOOD COUNT 6.6 x1000/uL (4.5-11.0)
[2024-07-05 16:12] LABS: CARBON DIOXIDE 27 mEq/L (21-32); CHLORIDE 101 mEq/L (98-107); POTASSIUM 3.5 mEq/L (3.5-5.1); SODIUM 133 mEq/L (136-145)
[2024-07-05 16:13] LABS: CALCIUM 8.6 mg/dL (8.7-10.4)
[2024-07-05 16:18] LABS: GLUCOSE 105 mg/dL (70-105); UREA NITROGEN BLOOD 13 mg/dL (9-23)
[2024-07-05 16:20] LABS: PHOSPHORUS 2.3 mg/dL (2.5-4.9)
[2024-07-05 20:00] VITALS: BP 106/68; PULSE 88; RESP 18; TEMP 36.28068; O2SAT 98
[2024-07-06] VITALS: BP 133/88; PULSE 87; RESP 18; TEMP 36.28068; O2SAT 99
[2024-07-06 04:00] VITALS: BP 116/75; PULSE 83; RESP 18; TEMP 36.3918; O2SAT 99
[2024-07-06] MEDS ORDERED: LIDOCAINE HCL 1% 10 MG/ML 10ML VIAL ONE (07:38)
[2024-07-06 08:00] VITALS: BP 158/74; PULSE 83; RESP 18; TEMP 36.61404; O2SAT 98
[2024-07-06 08:18] LABS: HEMATOCRIT 26.3 % (42.0-52.0); HEMOGLOBIN 9.1 g/dL (14.0-18.0); MEAN CORPUSCULAR HEMOGLOBIN 33.7 pg (28.0-32.0); MEAN CORPUSCULAR HGB CONC 34.4 g/dL (31.0-37.0); MEAN CORPUSCULAR VOLUME 98.1 fL (80.0-94.0); PLATELET 324 x1000/uL (130-400); RED BLOOD CELL COUNT 2.69 mill/uL (4.7-6.1); WHITE BLOOD COUNT 5.4 x1000/uL (4.5-11.0)
[2024-07-06 08:29] LABS: CALCIUM 8.8 mg/dL (8.7-10.4); CARBON DIOXIDE 28 mEq/L (21-32); CHLORIDE 102 mEq/L (98-107); POTASSIUM 3.9 mEq/L (3.5-5.1); SODIUM 134 mEq/L (136-145)
[2024-07-06 08:35] LABS: GLUCOSE 91 mg/dL (70-105); UREA NITROGEN BLOOD 12 mg/dL (9-23)
[2024-07-06 12:00] VITALS: BP 140/60; PULSE 87; RESP 18; TEMP 36.72516; O2SAT 97
[2024-07-06 16:00] VITALS: BP 154/79; PULSE 55; RESP 18; TEMP 36.78072; O2SAT 96
[2024-07-06 17:27] LABS: PHOSPHORUS 2.5 mg/dL (2.5-4.9)
[2024-07-06 20:00] VITALS: BP 96/58; PULSE 66; RESP 19; TEMP 36.28068; O2SAT 94
[2024-07-07] VITALS: BP 122/56; PULSE 69; RESP 19; TEMP 36.3918; O2SAT 96
[2024-07-07] MEDS: ALPRAZOLAM 0.25 MG TABLET PO NR (02:04)
[2024-07-07 04:00] VITALS: BP 144/86; PULSE 67; RESP 19; TEMP 36.3918; O2SAT 95
[2024-07-07 07:01] LABS: CARBON DIOXIDE 30 mEq/L (21-32); CHLORIDE 102 mEq/L (98-107); SODIUM 134 mEq/L (136-145)
[2024-07-07 07:03] LABS: CALCIUM 8.8 mg/dL (8.7-10.4)
[2024-07-07 07:06] LABS: GLUCOSE 92 mg/dL (70-105)
[2024-07-07 07:07] LABS: UREA NITROGEN BLOOD 15 mg/dL (9-23)
[2024-07-07 07:09] LABS: PHOSPHORUS 2.3 mg/dL (2.5-4.9)
[2024-07-07 07:28] LABS: BASOPHILS % 0.6 % (0.0-2.0); EOSINOPHILS % 1.9 % (0.0-5.0); HEMATOCRIT. 28.5 % (42.0-52.0); HEMOGLOBIN. 9.5 g/dL (14.0-18.0); LYMPHOCYTES % 11.8 % (20.0-50.0); MEAN CORPUSCULAR HEMOGLOBIN 32.9 pg (28.0-32.0); MEAN CORPUSCULAR HGB CONC 33.3 g/dL (31.0-37.0); MEAN CORPUSCULAR VOLUME 98.7 fL (80.0-94.0); MEAN PLATELET VOLUME 9.1 fl (7.4-10.4); MONOCYTES % 11.3 % (2.0-8.0); NEUTROPHILS % 74.4 % (40.0-76.0); PLATELET 333 x1000/uL (130-400); RED BLOOD CELL COUNT 2.89 mill/uL (4.7-6.1); RED CELL DISTRIBUTION WIDTH 13.9 % (11.6-14.6); WHITE BLOOD COUNT 5.7 x1000/uL (4.5-11.0)
[2024-07-07 08:00] VITALS: BP 117/78; PULSE 81; RESP 19; TEMP 36.55848; O2SAT 99
[2024-07-07] MEDS: MAGNESIUM 2 G PREMIX 50 ML IV NR (10:08)
[2024-07-07] MEDS: SODIUM PHOSPHATE 15 MMOL in DEXT 5% WATER 245 ML IV NR (11:34)
[2024-07-07 12:00] VITALS: BP 118/82; PULSE 85; RESP 18; TEMP 36.61404; O2SAT 99
[2024-07-07 16:00] VITALS: BP 130/90; PULSE 59; RESP 18; TEMP 36.6696; O2SAT 98
[2024-07-07 20:00] VITALS: BP 97/61; PULSE 96; RESP 19; TEMP 36.61404; O2SAT 100
[2024-07-08] VITALS: BP 135/75; PULSE 65; RESP 19; TEMP 36.6696; O2SAT 100
[2024-07-08 04:00] VITALS: BP 130/78; PULSE 71; RESP 19; TEMP 36.6696; O2SAT 99
[2024-07-08 08:00] VITALS: BP 127/77; PULSE 69; RESP 18; TEMP 36.55848; O2SAT 96
[2024-07-08 12:00] VITALS: BP 101/62; PULSE 111; RESP 20; TEMP 36.33624; O2SAT 96
[2024-07-08 16:00] VITALS: BP 111/84; PULSE 84; RESP 18; TEMP 36.78072; O2SAT 99
[2024-07-09] VITALS: BP 120/73; PULSE 87; RESP 19; TEMP 36.72516; O2SAT 98
[2024-07-09 04:00] VITALS: BP 122/78; PULSE 80; RESP 18; TEMP 36.78072; O2SAT 98
[2024-07-09 08:00] VITALS: BP 121/78; PULSE 86; RESP 18; TEMP 36.3918; O2SAT 98
[2024-07-09 10:15] LABS: BASOPHILS % 0.9 % (0.0-2.0); EOSINOPHILS % 3.5 % (0.0-5.0); HEMATOCRIT. 27.5 % (42.0-52.0); HEMOGLOBIN. 9.3 g/dL (14.0-18.0); LYMPHOCYTES % 14.6 % (20.0-50.0); MEAN CORPUSCULAR HEMOGLOBIN 33.4 pg (28.0-32.0); MEAN CORPUSCULAR HGB CONC 33.9 g/dL (31.0-37.0); MEAN CORPUSCULAR VOLUME 98.5 fL (80.0-94.0); MEAN PLATELET VOLUME 8.4 fl (7.4-10.4); MONOCYTES % 8.9 % (2.0-8.0); NEUTROPHILS % 72.1 % (40.0-76.0); PLATELET 295 x1000/uL (130-400); RED BLOOD CELL COUNT 2.79 mill/uL (4.7-6.1); RED CELL DISTRIBUTION WIDTH 14.4 % (11.6-14.6); WHITE BLOOD COUNT 4.4 x1000/uL (4.5-11.0)
[2024-07-09 10:27] LABS: CARBON DIOXIDE 31 mEq/L (21-32); CHLORIDE 100 mEq/L (98-107); POTASSIUM 3.7 mEq/L (3.5-5.1); SODIUM 133 mEq/L (136-145)
[2024-07-09 10:33] LABS: GLUCOSE 102 mg/dL (70-105); UREA NITROGEN BLOOD 11 mg/dL (9-23)
[2024-07-09 10:36] LABS: PHOSPHORUS 2.3 mg/dL (2.5-4.9)
[2024-07-09 12:00] VITALS: BP 104/66; PULSE 90; RESP 18; TEMP 36.114; O2SAT 98
[2024-07-09] MEDS: MAGNESIUM 2 G PREMIX 50 ML IV NR (14:05)
[2024-07-09] MEDS: SODIUM PHOSPHATE 15 MMOL in DEXT 5% WATER 245 ML IV NR (14:07)
[2024-07-09 16:00] VITALS: BP 97/53; PULSE 74; RESP 18; TEMP 35.5584; O2SAT 98
[2024-07-09 20:00] VITALS: BP 129/84; PULSE 83; RESP 20; TEMP 36.28068; O2SAT 98
[2024-07-10] VITALS: BP 157/93; PULSE 64; RESP 20; TEMP 36.16956; O2SAT 97
[2024-07-10 04:00] VITALS: BP 159/97; PULSE 69; RESP 22; TEMP 36.28068; O2SAT 97
[2024-07-10 06:16] LABS: CARBON DIOXIDE 29 mEq/L (21-32); CHLORIDE 99 mEq/L (98-107); POTASSIUM 4.1 mEq/L (3.5-5.1); SODIUM 132 mEq/L (136-145)
[2024-07-10 06:21] LABS: GLUCOSE 98 mg/dL (70-105)
[2024-07-10 06:22] LABS: UREA NITROGEN BLOOD 13 mg/dL (9-23)
[2024-07-10 06:24] LABS: PHOSPHORUS 2.7 mg/dL (2.5-4.9)
[2024-07-10 06:35] LABS: BASOPHILS % 0.7 % (0.0-2.0); EOSINOPHILS % 3.1 % (0.0-5.0); HEMATOCRIT. 30.6 % (42.0-52.0); HEMOGLOBIN. 10.1 g/dL (14.0-18.0); LYMPHOCYTES % 14.9 % (20.0-50.0); MEAN CORPUSCULAR HEMOGLOBIN 32.6 pg (28.0-32.0); MEAN CORPUSCULAR HGB CONC 33.1 g/dL (31.0-37.0); MEAN CORPUSCULAR VOLUME 98.4 fL (80.0-94.0); MONOCYTES % 11.4 % (2.0-8.0); NEUTROPHILS % 69.9 % (40.0-76.0); PLATELET 292 x1000/uL (130-400); RED BLOOD CELL COUNT 3.11 mill/uL (4.7-6.1); RED CELL DISTRIBUTION WIDTH 14.3 % (11.6-14.6); WHITE BLOOD COUNT 5.2 x1000/uL (4.5-11.0)
[2024-07-10 08:00] VITALS: BP 143/77; PULSE 63; RESP 19; TEMP 36.3918; O2SAT 97
[2024-07-10 12:00] VITALS: BP 113/81; PULSE 76; RESP 18; TEMP 36.3918; O2SAT 96
[2024-07-10 16:00] VITALS: BP_SYST 134; BP_SYST 138; BP_DIAS 74; BP_DIAS 76; PULSE 74; RESP 18; RESP 19; TEMP 36.33624; O2SAT 96
[2024-07-10 16:21] VITALS: BP 134/74; PULSE 74; TEMP 97.4; O2SAT 100
[2024-07-10] MEDS ORDERED: VANCOMYCIN 1000MG/250ML 250 ML IV SCH (21:00)
== END 2024-07-10 18:11 | DRG 447 ==
LOC: ER 17:23 → 5WST 06-21 05:31 → 6WST 06-21 10:45 → MICUNO 06-23 09:37 → 7EST 06-28 11:33
PROVIDERS: ADMIT Internal Medicine; ATTEND Internal Medicine
PROC: 02HV33Z Insertion of Infusion Device into Superior Vena Cava, Percutaneous Approach (ICD-10-PCS; 2024-06-25)
PROC: B548ZZA Ultrasonography of Superior Vena Cava, Guidance (ICD-10-PCS; 2024-06-25)
PROC: 0RG7071 Fusion of 2 to 7 Thoracic Vertebral Joints with Autologous Tissue Substitute, Posterior Approach, Posterior Column, Open Approach (ICD-10-PCS; principal; 2024-06-26)
PROC: 0SG0071 Fusion of Lumbar Vertebral Joint with Autologous Tissue Substitute, Posterior Approach, Posterior Column, Open Approach (ICD-10-PCS; 2024-06-26)
PROC: 0RGA071 Fusion of Thoracolumbar Vertebral Joint with Autologous Tissue Substitute, Posterior Approach, Posterior Column, Open Approach (ICD-10-PCS; 2024-06-26)
PROC: 00NX0ZZ Release Thoracic Spinal Cord, Open Approach (ICD-10-PCS; 2024-06-26)
PROC: 00NY0ZZ Release Lumbar Spinal Cord, Open Approach (ICD-10-PCS; 2024-06-26)
PROC: 4A11X4G Monitoring of Peripheral Nervous Electrical Activity, Intraoperative, External Approach (ICD-10-PCS; 2024-06-26)
PROC: 02HV33Z Insertion of Infusion Device into Superior Vena Cava, Percutaneous Approach (ICD-10-PCS; 2024-07-06)
PROC: B548ZZA Ultrasonography of Superior Vena Cava, Guidance (ICD-10-PCS; 2024-07-06)
PROC: B5181ZA Fluoroscopy of Superior Vena Cava using Low Osmolar Contrast, Guidance (ICD-10-PCS; 2024-07-06)
DX: S22.089A Unspecified fracture of T11-T12 vertebra, initial encounter for closed fracture (principal); G82.50 Quadriplegia, unspecified; N17.0 Acute kidney failure with tubular necrosis; S32.019A Unspecified fracture of first lumbar vertebra, initial encounter for closed fracture; E87.1 Hypo-osmolality and hyponatremia; J98.11 Atelectasis; E87.20 Acidosis, unspecified; I48.92 Unspecified atrial flutter; M46.26 Osteomyelitis of vertebra, lumbar region; G82.20 Paraplegia, unspecified; M46.25 Osteomyelitis of vertebra, thoracolumbar region; I10 Essential (primary) hypertension; D64.9 Anemia, unspecified; E78.5 Hyperlipidemia, unspecified; I44.4 Left anterior fascicular block; M16.11 Unilateral primary osteoarthritis, right hip; M47.812 Spondylosis without myelopathy or radiculopathy, cervical region; N40.0 Benign prostatic hyperplasia without lower urinary tract symptoms; K57.30 Diverticulosis of large intestine without perforation or abscess without bleeding; E80.6 Other disorders of bilirubin metabolism; E03.9 Hypothyroidism, unspecified; I48.0 Paroxysmal atrial fibrillation; E11.69 Type 2 diabetes mellitus with other specified complication; R74.8 Abnormal levels of other serum enzymes; M50.322 Other cervical disc degeneration at C5-C6 level; R79.89 Other specified abnormal findings of blood chemistry; E11.65 Type 2 diabetes mellitus with hyperglycemia; Z79.899 Other long term (current) drug therapy; Z87.891 Personal history of nicotine dependence; W18.30XA Fall on same level, unspecified, initial encounter; Y93.89 Activity, other specified; Y92.89 Other specified places as the place of occurrence of the external cause; Y99.8 Other external cause status
CPT/HCPCS: 36415; 36573; 36600; 71045; 71260; 72070; 72131; 72141; 72146; 72147; 72148; 72192; 73522; 74177; 76000; 76700; 80048; 80053; 80061; 80076; 80202; 81003; 82040; 82310; 82375; 82550; 82565; 82805; 82962; 83036; 83605; 83735; 83880; 84100; 84145; 84439; 84443; 84480; 84484; 85025; 85027; 85651; 86480; 86850; 86900; 87070; 87075; 88305; 88311; 93005; 93306; 93970; 94003; 97116; 97162; 97166; 97530; 97535; 99285; A9577; C1725; J0282; J0330; J0360; J0461; J0690; J0696; J1100; J1580; J1650; J1815; J1885; J2250; J2270; J2704; J3010; J3370; J3475; J3480; J3490; J7050; J7060; J7121; Q9967; C1713